=== PATIENT | male | born 1970 | race African-American/Black ===

== ENCOUNTER 2019-07-01 21:34 | Inpatient (IN) | payer MEDICAID, OTHER ==
[2019-07-01 23:31] LABS: CKMB 6.3 ng/mL (0-6.6)
[2019-07-02] MEDS ORDERED: hydrALAZINE 20 MG/ML VIAL SLOW IVP PRN (00:59)
[2019-07-02] MEDS ORDERED: Atorvastatin Calcium 40 MG TAB PO SCH ×2 (01:00→21:00)
[2019-07-02 02:44] LABS: Troponin I 0.059 ng/mL (< 0.028)
[2019-07-02 06:16] LABS: Troponin I 0.053 ng/mL (< 0.028)
[2019-07-02 06:45] VITALS: BMI 36.5
--- NOTE | 2019-07-02 07:36 | HP ---
PRIMARY CARE PHYSICIAN: Unknown. CHIEF COMPLAINT: Chest pain, headache, transfer from [facility] for further evaluation. HISTORY OF PRESENT ILLNESS: This is a 49-year-old male with past medical history of CVA with residual right-sided neurological deficits, hypertension, type 2 insulin-dependent diabetes mellitus, chronic kidney disease stage 3, and depression with bipolar disorder on Seroquel, who went to [facility] for routine evaluation and was noted to have elevated blood pressures of over 210 systolic over 110 diastolic prompting ED evaluation to [facility] and subsequently to [facility] for further evaluation. The patient reports for the past several weeks, he has been having intermittent headaches despite medication compliance. This morning, he noted left-sided chest discomfort described as pressure-like discomfort rated 8/10 in severity without radiation and without any associated nausea, vomiting, back or shoulder pain or arm pain, numbness, or tingling. He notes associated complaints of blurred vision in the past several weeks and mild shortness of breath. He is compliant with amlodipine and lisinopril and possibly other blood pressure medication, the name of which he cannot remember and states he has p.r.n. clonidine tablets available at home which he is not using. He states he checks his blood pressure at home. The highest readings are 185 systolic. Apparently, he was administered clonidine, hydralazine, and nitroglycerin paste at outside ER prior to evaluation. Initial troponin at outside facility was mildly elevated approximately at 0.09. Repeat troponin here is 0.115. 12-lead EKG revealed normal sinus rhythm without ischemic changes and changes of LVH. At bedside, the patient denies any other acute complaints. He notes maybe some mild left-sided chest discomfort, which is minimal. He denies any current headaches or blurred vision. He denies any prior history of coronary artery disease or [place] or stenting or any prior cardiac risk stratification. He is accompanied by his spouse. He denies illicit drug use. PAST MEDICAL HISTORY: CVA with residual right-sided neurological deficits, hypertension, type 2 insulin-dependent diabetes, CKD 3, bipolar disorder, and depression. Right hallux infection, completing antibiotics. PAST SURGICAL HISTORY: Appendectomy, herniorrhaphy, left arm fracture, right ankle fracture, currently in a boot with [employer] device. SOCIAL HISTORY: The patient is , lives at home with his spouse. He denies tobacco or alcohol use. Uses an assistive device to ambulate using cane. His last fall was on June 18. ALLERGIES: NONE REPORTED. REVIEW OF SYSTEMS: Pertinent positives as per HPI. Remainder of review of systems negative. MEDICATIONS: Reviewed as per admission medication reconciliation. FAMILY HISTORY: Notable for hypertension and diabetes mellitus in family members. The patient's mother had breast cancer. PHYSICAL EXAMINATION: VITAL SIGNS: At outside facility, reportedly blood pressures of over 220/120. Current blood pressure 137/85 with pulse 93, respirations 18, temperature 98.0, oxygen saturation 98% on room air. GENERAL APPEARANCE: Middle-aged male, who is awake, alert, oriented, coherent, lucid, not in any obvious distress, nontoxic in appearance. HEENT: Normocephalic, atraumatic. No facial asymmetry. Mucous membranes moist. Pupils equally round. NECK: Supple. CARDIOVASCULAR: S1, S2. Regular rate and rhythm. No harsh murmurs. No reproducible chest wall tenderness to palpation. LUNGS: Bilateral equal air entry on posterior auscultation. Symmetrical chest expansion. No wheezing or rales. ABDOMEN: Soft, nontender, nondistended. EXTREMITIES: No edema, cyanosis or deformities of both upper and lower extremities. There is a boot in the right foot. SKIN: Warm to touch without rash or pallor or abrasions. NEUROLOGICAL EVALUATION: No facial asymmetry. There are no chronic speech difficulty deficits noted. Gait was not assessed. LABORATORY VALUES: From outside facility reportedly unremarkable. Troponin at outside facility from 0.09, with repeat troponin here at 0.115. EKG reviewed reveals normal sinus rhythm with LVH changes. ASSESSMENT: 1. Hypertensive urgency. The patient will be admitted as observation status and placed on telemetry monitoring. He is noted to have complaints of intermittent headaches for the past 4 weeks with blurred vision and elevated blood pressure readings at home despite medication compliance, as well as complaints of chest pain this morning. We will trend serial cardiac biomarkers to exclude acute coronary syndrome. Home medications will be reconciled once list is accurately obtained. We will monitor blood pressure for normotension in the interim. The patient maintains medication compliance. 2. Chest pain, rule out acute coronary syndrome. I suspect the patient's symptoms are likely secondary to chronic hypertension and perhaps strain. We will trend serial cardiac biomarkers to evaluate for acute coronary syndrome. Noted mild troponin elevation of unspecified severity. We will consult Cardiology for further cardiac risk stratification, maintain patient n.p.o., obtain transthoracic echocardiogram, continue oral aspirin and moderate intensity statin. 3. Chronic kidney disease stage 3, baseline. 4. History of cerebrovascular accident with residual neurological deficits. 5. Type 2 diabetes mellitus. Resume patient's insulin dose. 6. History of bipolar disorder and depression. The patient takes Seroquel 200 mg nightly and resume normal dosing starting tomorrow night. Deep venous thrombosis prophylaxis. Low molecular weight heparin. Code status: Full code. DISPOSITION: Telemetry observation status. Job ID: [id number] MTDD
[2019-07-02] MEDS: Amlodipine 10 MG TAB PO SCH (08:53)
[2019-07-02] MEDS: Aspirin 325 mg Enteric Coated Tablet PO SCH (08:53)
[2019-07-02] MEDS ORDERED: Enoxaparin Sodium 40 MG/0.4 ML SYRINGE SC SCH (09:00)
[2019-07-02] MEDS ORDERED: Lisinopril 20 MG TAB PO SCH (09:00)
[2019-07-02] MEDS ORDERED: predniSONE 20 MG TAB PO SCH (13:15)
[2019-07-02] MEDS ORDERED: diphenhydrAMINE 50 MG CAP PO SCH (13:15)
[2019-07-02] MEDS ORDERED: Communication Order-Pharmacy FS SCH (13:15)
[2019-07-02] MEDS ORDERED: Famotidine 20 MG TAB PO SCH (13:15)
[2019-07-02] MEDS: Sodium Chloride 0.9% 1,000 ML IV SCH (14:18)
--- NOTE | 2019-07-02 15:07 | PDOC.HOSPP ---
- Subjective Encounter Date: 07/02/19 Encounter Time: 15:00 Subjective: The patient continues to have chest pain, states it is 6/10 on left side of chest. Started at home, but doesn't know what brought it on. No shortness of breath, dizziness or lightheadedness. He states aspirin and nitro patch did not provide much relief. He has never had this chest pain before. - Objective Vital Signs & Weight: Vital Signs (12 hours) Temp Pulse Resp BP BP Pulse Ox 07/02/19 11:29 97.8 F 91 17 157/79 H 99 07/02/19 10:06 151/72 H 07/02/19 08:53 56 L 07/02/19 07:45 97.6 F 56 L 15 194/96 H 99 07/02/19 06:34 98.2 F 89 17 153/85 H 100 Weight Weight 269 lb 8 oz Hospitalist ROS - Review of Systems Constitutional: denies: fever, chills ENT: denies: ear pain, ear discharge Cardiovascular: denies: light headedness, other Gastrointestinal: denies: vomiting - Medication Medications: Active Medications Generic Name Dose Route Start Last Admin Trade Name Freq PRN Reason Stop Dose Admin Amlodipine Besylate 10 mg 07/02/19 09:00 07/02/19 08:53 Norvasc PO 10 mg DAILY CHELSIE Administration Aspirin 325 mg 07/02/19 09:00 07/02/19 08:53 Ecotrin PO 325 mg DAILY CHELSIE Administration Diphenhydramine HCl 50 mg 07/02/19 13:15 07/02/19 14:18 Benadryl PO 07/02/19 15:15 50 mg NOW CHELSIE Administration Enoxaparin Sodium 40 mg 07/02/19 09:00 07/02/19 08:53 Lovenox SC 07/02/19 20:00 Not Given 0900 CHELSIE Famotidine 20 mg 07/02/19 13:15 07/02/19 14:18 Pepcid PO 07/02/19 15:15 20 mg NOW CHELSIE Administration Sodium Chloride 1,000 mls @ 75 mls/hr 07/02/19 13:00 07/02/19 14:18 Normal Saline 0.9% IV 1,000 mls .[id number] CHELSIE Administration Prednisone 20 mg 07/02/19 13:15 07/02/19 14:18 Prednisone PO 07/02/19 15:15 20 mg NOW CHELSIE Administration - Exam General Appearance: NAD, awake alert Eye: PERRL, anicteric sclera ENT: normocephalic atraumatic, no oropharyngeal lesions Neck: supple, symmetric, no JVD, no thyromegaly Heart: RRR, no murmur, no gallops, no rubs Respiratory: CTAB, no wheezes, no rales, no ronchi Gastrointestinal: soft, non-tender, non-distended, normal bowel sounds Extremities: no cyanosis, no clubbing, no edema Skin: normal turgor, no lesions, no rashes Hosp A/P - Plan THis is a 49 year old male with past medical history of hypertension, CVA, type II diabetes presenting withc hest pain, admitted for NSTEMI NSTEMI - troponin peaked at 0.059. Continue aspirin, statin, beta karri, lisinopril - cardiology consult, plan for cath tomorrow - EF 55-60% with diastolic dysfunction - resume nitro patch for now CKD - check BMp Type II diabetes - fingersticks achs, insulin sliding scale Hypertensive urgency- improved - continue amlodpine 10, coreg and lisinopril Code status: full code Disposition: cath tomorrow
[2019-07-02] MEDS ORDERED: Dextrose 5% in Water 1,000 ML IV PRN (15:11)
[2019-07-02] MEDS ORDERED: Dextrose 50% Abboject 50 ML SYRINGE SLOW IVP PRN (15:11)
[2019-07-02 15:32] LABS: Hemoglobin 12.6 g/dL (14.0-18.0); Mean Corpuscular HGB CONC 32.8 g/dL (32.0-36.0); Mean Corpuscular Volume 82.4 fL (78.0-98.0); Mean Platelet Volume 9.9 fL (7.4-10.4); Platelet Count 179 thou/uL (130-400); RBC Distribution Width 13.7 % (11.5-14.5); Red Blood Cell (RBC) Count 4.67 mill/uL (4.70-6.10); White Blood Cell (WBC) Count 6.5 thou/uL (4.8-10.8)
[2019-07-02 15:49] LABS: Anion Gap 14 mmol/L (10-20); BUN (Urea Nitrogen) 12 mg/dL (8.9-20.6); Calc. Creatinine Clearance 106 mL/min (70-130); Calcium 8.7 mg/dL (7.8-10.44); Carbon Dioxide 22 mmol/L (22-29); Chloride 106 mmol/L (98-107); Estimated GFR-MDRD 63; Glucose 238 mg/dL (70-105); Potassium 4.1 mmol/L (3.5-5.1); Sodium 138 mmol/L (136-145)
[2019-07-02] MEDS ORDERED: Nitroglycerin 0.2mg/Hour PATCH TD SCH (16:00)
[2019-07-02] MEDS ORDERED: Morphine 2 MG/ML SYRINGE SLOW IVP PRN (16:53)
--- NOTE | 2019-07-02 17:04 | CON ---
DATE OF CONSULTATION: HISTORY OF PRESENT ILLNESS: Colin Marin is a 49-year-old black male from [place], who is transferred here for evaluation of headache and chest discomfort. He was found to have a blood pressure of 210/110 when he was seen for routine evaluation. He was sent to [facility] in [place]. Also, for the last several weeks, he has been having intermittent headaches and blurred vision. Also, yesterday, he noted left-sided chest discomfort, which he described as a pressure, which lasted most of the day. He did not have any pleuritic component to the discomfort. He has not had this type chest discomfort in the past. His initial troponin was 0.09, and this increased to 0.115. EKG revealed normal sinus rhythm with possible left atrial enlargement. He denies any shortness of breath. He denies any nausea, vomiting, or diaphoresis. PAST MEDICAL HISTORY: Hypertension, hypercholesterolemia, and diabetes. Also, in November 2016, he had a stroke, which affected his speech and right side. His speech returned, and he still has mild weakness on his right side. He was evaluated at [facility] in [place] when he had the stroke. He was not told that he had any bleeding into his brain. He was told that he should take an aspirin every day thereafter and was not taking any aspirin prior to the stroke. He also has bipolar disorder and depression. PAST SURGICAL HISTORY: Operations: Appendectomy, herniorrhaphy, drainage of scrotal abscess, right ankle fracture, and left arm fracture. SOCIAL HISTORY: He smoked until 20 years ago, less than a pack a day. The patient does dip snuff. He does not drink. MEDICATIONS: (He states he has been taking these medications): 1. Albuterol 2 puffs q.6 hours p.r.n. 2. Amlodipine 10 mg daily. 3. Aspirin 81 daily. 4. Atorvastatin 40 q.p.m. 5. Carvedilol 25 b.i.d. 6. Chlorthalidone 25 daily. 7. Clonidine 0.2 mg b.i.d. p.r.n. 8. Gabapentin 600 t.i.d. 9. [place] p.r.n. 10. Lantus insulin. 11. Keppra 1000 mg b.i.d. 12. Lisinopril 40 daily. 13. Reglan 10 mg q.i.d. p.r.n. 14. Remeron 15 mg at bedtime p.r.n. 15. Seroquel 100 mg q.p.m. ALLERGIES: IODINE. HE STATES THAT WHEN RECEIVING INTRAVENOUS CONTRAST FOR AN X -RAY PROCEDURE THAT HE DEVELOPED FACIAL SWELLING. FAMILY HISTORY: Negative for myocardial infarction, CABG, or stent placement. REVIEW OF SYSTEMS: A 10-point review of systems is otherwise unremarkable. PHYSICAL EXAMINATION: GENERAL: Blood pressure 157/79, pulse of 91. HEENT: PERRL. NECK: Supple. CHEST: Clear. CARDIAC: S1 and S2 are normal without any S3, S4, or murmurs. Carotid upstrokes are normal without bruits. ABDOMEN: Normal bowel sounds without tenderness or organomegaly. EXTREMITIES: Revealed no clubbing, cyanosis, or edema. NEUROLOGIC: Grossly intact except for mild right-sided weakness. SKIN: Warm and dry. LABORATORY DATA: EKG reveals normal sinus rhythm with left atrial enlargement. Echocardiogram revealed moderate concentric left ventricular hypertrophy, ejection fraction of 55% to 60%, evidence for diastolic dysfunction, mild left atrial enlargement, mild mitral regurgitation, and mild tricuspid regurgitation. Blood work from [place] revealed sodium of 139, potassium 4.2, chloride 108, carbon dioxide 22, BUN 18, creatinine 1.63 (it is of note that creatinine here in January 2017, was also 1.63). Hemoglobin 11.9, hematocrit 37.6, white count 6300, platelets 191,000. Troponin I here has been 0.115. IMPRESSION: 1. Possible acute coronary syndrome. It is somewhat unusual though that his pain lasted all day, and he has not had significant elevation of his cardiac enzymes. 2. Hypertension, poorly controlled at this time. 3. Hypercholesterolemia. 4. Diabetes. 5. Snuff user. 6. Former smoker. 7. History of bipolar disorder. 8. History of depression. 9. Chronic kidney disease. 10. Dye allergy. PLAN: The situation was discussed with the patient and his . He will be restarted on carvedilol, which has not been restarted on admission. Also, lisinopril will be discontinued with his renal insufficiency. Chlorthalidone has already been stopped. He will be hydrated overnight. He also will be started on prednisone q 6 hours, Benadryl q.6 hours, and Pepcid b.i.d. It is recommended he undergo cardiac catheterization, and risks of this were discussed with the patient and his - , myocardial infarction, dye reaction, vascular injury, CVA, transfusion, limb loss, renal loss, allergic reaction, etc. Risks of stent placement were discussed including , myocardial infarction, emergent CABG, restenosis, stent thrombosis, vessel perforation, etc. He has never had any gastrointestinal bleeding. His stroke apparently was not hemorrhagic in nature, and he does not have any upcoming surgeries, and so, a drug-eluting stent will be placed if needed. Also, consideration will be given to renal arteriogram with his severe hypertension despite maximum doses of multiple medications. Job ID: [id number] [facility]PITALJayesh
[2019-07-02] MEDS: predniSONE 20 MG TAB PO SCH (17:24)
[2019-07-02] MEDS: HumaLOG 300 UNITS/3 ML VIAL SC PRN (17:24)
[2019-07-02] MEDS: diphenhydrAMINE 50 MG CAP PO SCH (17:24)
[2019-07-02] MEDS: Carvedilol 25 MG TAB PO SCH (17:24)
[2019-07-02] MEDS: Famotidine 20 MG TAB PO SCH (22:04)
[2019-07-03] MEDS: diphenhydrAMINE 50 MG CAP PO SCH ×3 (00:02→12:04)
[2019-07-03] MEDS: predniSONE 20 MG TAB PO SCH ×3 (00:02→12:04)
[2019-07-03] MEDS: Sodium Chloride 0.9% 1,000 ML IV SCH (04:05)
[2019-07-03 05:23] LABS: Prothrombin Time 12.8 SEC (12.0-14.7)
[2019-07-03 05:41] LABS: Anion Gap 13 mmol/L (10-20); BUN (Urea Nitrogen) 17 mg/dL (8.9-20.6); Calc. Creatinine Clearance 92 mL/min (70-130); Calcium 8.8 mg/dL (7.8-10.44); Carbon Dioxide 21 mmol/L (22-29); Cardiac Risk 4.3 (Less than 4.5); Chloride 107 mmol/L (98-107); Cholesterol 222 mg/dl (< 200 Desired); Estimated GFR-MDRD 53; Glucose 301 mg/dL (70-105); HDL Cholesterol 52 mg/dL (>60 Neg Risk); LDL Cholesterol, Calculated 150 mg/dL; Potassium 4.7 mmol/L (3.5-5.1); Sodium 136 mmol/L (136-145); Triglycerides 99 mg/dL (Less than 150)
[2019-07-03] MEDS: Famotidine 20 MG TAB PO SCH (05:57)
[2019-07-03] MEDS: Carvedilol 25 MG TAB PO SCH ×3 (05:57→21:14)
[2019-07-03] MEDS: Amlodipine 10 MG TAB PO SCH (05:57)
[2019-07-03] MEDS: Aspirin 325 mg Enteric Coated Tablet PO SCH (05:57)
[2019-07-03] MEDS ORDERED: Heparin 10,000 UNITS/1 ML VIAL ONE (06:59)
[2019-07-03] MEDS ORDERED: Heparin (Artline) 1,000 ML ONE (06:59)
[2019-07-03] MEDS ORDERED: Midazolam HCl 2 mg/2 ml Vial ONE (08:40)
[2019-07-03] MEDS ORDERED: Fentanyl 100 MCG/2 ML VIAL ONE (08:40)
[2019-07-03] MEDS ORDERED: Protamine Sulfate 50 MG/5 ML VIAL ONE (09:01)
[2019-07-03] MEDS ORDERED: Sodium Chloride 0.9% 200 ML IV PRN (09:14)
[2019-07-03] MEDS ORDERED: Acetaminophen/Codeine 30-300mg Tablet PO PRN (09:14)
[2019-07-03] MEDS ORDERED: Nitroglycerin 0.4 MG TAB (25 Tab Bottle) SL PRN (09:14)
[2019-07-03] MEDS ORDERED: Sodium Chloride 0.9% 1,000 ML IV SCH ×2 (09:15→09:30)
[2019-07-03] MEDS: HumaLOG 300 UNITS/3 ML VIAL SC PRN ×3 (12:04→21:35)
[2019-07-03] MEDS: Acetaminophen/Codeine 30-300mg Tablet PO PRN ×2 (12:05→17:11)
[2019-07-03] MEDS ORDERED: Iopamidol 370 76% 100 ML VIAL ONE (12:40)
--- NOTE | 2019-07-03 13:20 | PDOC.HOSPP ---
- Subjective Encounter Date: 07/03/19 - Objective Vital Signs & Weight: Vital Signs (12 hours) Temp Pulse Resp BP BP Pulse Ox 07/03/19 11:14 97.7 F 89 22 H 117/54 L 98 07/03/19 09:34 97.6 F 88 20 138/76 100 07/03/19 09:14 100 07/03/19 05:57 94 144/67 H 07/03/19 03:24 94 18 144/67 H 99 Weight Weight 269 lb 8 oz I&O: 07/02/19 07/03/19 07/04/19 06:59 06:59 06:59 Intake Total 2100 Output Total 900 Balance 1200 Result Diagrams: 07/02/19 15:24 07/03/19 04:47 Additional Labs: Accuchecks 07/03/19 07/02/19 07/02/19 11:19 20:44 16:58 POC Glucose 362 H 258 H 222 H 07/02/19 11:37 POC Glucose 152 H Hospitalist ROS - Medication Medications: Active Medications Generic Name Dose Route Start Last Admin Trade Name Freq PRN Reason Stop Dose Admin Acetaminophen/Codeine Phosphate 2 tab 07/03/19 09:14 07/03/19 12:05 Tylenol #3 PO 2 tab Q4H PRN Administration Moderate Pain (4-6) Amlodipine Besylate 10 mg 07/02/19 09:00 07/03/19 05:57 Norvasc PO 10 mg DAILY CHELSIE Administration Diphenhydramine HCl 50 mg 07/02/19 18:00 07/03/19 12:04 Benadryl PO 07/03/19 15:00 50 mg Q6HR CHELSIE Administration Sodium Chloride 1,000 mls @ 125 mls/hr 07/03/19 09:15 07/03/19 11:06 Normal Saline 0.9% IV 07/03/19 15:00 Not Given .Q8H CHELSIE Sodium Chloride 1,000 mls @ 75 mls/hr 07/03/19 09:30 07/03/19 12:06 Normal Saline 0.9% IV 07/03/19 15:00 1,000 mls .[id number] CHELSIE Administration Insulin Human Lispro 0 units 07/02/19 15:11 07/03/19 12:04 Humalog SC 6 unit .MILD SLIDING SCALE PRN Administration Mild Correctional Scale Morphine Sulfate 2 mg 07/02/19 16:53 07/02/19 17:24 Morphine SLOW IVP 2 mg Q4H PRN Administration Moderate Pain (4-6) Prednisone 20 mg 07/02/19 18:00 07/03/19 12:04 Prednisone PO 07/03/19 15:00 20 mg Q6HR CHELSIE Administration Hosp A/P - Plan THis is a 49 year old male with past medical history of hypertension, CVA, type II diabetes presenting withc hest pain, admitted for NSTEMI NSTEMI - troponin peaked at 0.059. Continue aspirin, statin, beta karri, lisinopril - cardiology consult, plan for cath tomorrow - EF 55-60% with diastolic dysfunction - resume nitro patch for now CKD - check BMp Type II diabetes - fingersticks achs, insulin sliding scale Hypertensive urgency- improved - continue amlodpine 10, coreg and lisinopril Code status: full code Disposition: cath tomorrow
[2019-07-03] MEDS ORDERED: Pantoprazole 40 MG GRANULES PACKET PO SCH (13:30)
--- NOTE | 2019-07-03 14:47 | PDOC.HOSPP ---
- Subjective Encounter Date: 07/03/19 Encounter Time: 10:30 Subjective: The patient continues to have chest pain. He had a cath this morning which showed no significant CAD. Chest pain is burning. No dysphagia or odynophagia. He also reports some pain in his RLQ. Wants to use the urinal and have a bowel movement, but is having difficulty since he has to lay flat. - Objective Vital Signs & Weight: Vital Signs (12 hours) Temp Pulse Resp BP BP Pulse Ox 07/03/19 11:14 97.7 F 89 22 H 117/54 L 98 07/03/19 09:34 97.6 F 88 20 138/76 100 07/03/19 09:14 100 07/03/19 05:57 94 144/67 H 07/03/19 03:24 94 18 144/67 H 99 Weight Weight 269 lb 8 oz I&O: 07/02/19 07/03/19 07/04/19 06:59 06:59 06:59 Intake Total 2100 Output Total 900 Balance 1200 Result Diagrams: 07/02/19 15:24 07/03/19 04:47 Additional Labs: Accuchecks 07/03/19 07/02/19 07/02/19 11:19 20:44 16:58 POC Glucose 362 H 258 H 222 H 07/02/19 11:37 POC Glucose 152 H Hospitalist ROS - Review of Systems Constitutional: denies: fever, chills ENT: denies: mouth pain Respiratory: denies: cough - Medication Medications: Active Medications Generic Name Dose Route Start Last Admin Trade Name Freq PRN Reason Stop Dose Admin Acetaminophen/Codeine Phosphate 2 tab 07/03/19 09:14 07/03/19 12:05 Tylenol #3 PO 2 tab Q4H PRN Administration Moderate Pain (4-6) Amlodipine Besylate 10 mg 07/02/19 09:00 07/03/19 05:57 Norvasc PO 10 mg DAILY CHELSIE Administration Carvedilol 25 mg 07/03/19 15:00 07/03/19 14:19 Coreg PO 25 mg TID CHELSIE Administration Diphenhydramine HCl 50 mg 07/02/19 18:00 07/03/19 12:04 Benadryl PO 07/03/19 15:00 50 mg Q6HR CHELSIE Administration Sodium Chloride 1,000 mls @ 125 mls/hr 07/03/19 09:15 07/03/19 11:06 Normal Saline 0.9% IV 07/03/19 15:00 Not Given .Q8H CHELSIE Sodium Chloride 1,000 mls @ 75 mls/hr 07/03/19 09:30 07/03/19 12:06 Normal Saline 0.9% IV 07/03/19 15:00 1,000 mls .[id number] CHELSIE Administration Insulin Human Lispro 0 units 07/02/19 15:11 07/03/19 12:04 Humalog SC 6 unit .MILD SLIDING SCALE PRN Administration Mild Correctional Scale Morphine Sulfate 2 mg 07/02/19 16:53 07/02/19 17:24 Morphine SLOW IVP 2 mg Q4H PRN Administration Moderate Pain (4-6) Pantoprazole Sodium 40 mg 07/03/19 13:30 07/03/19 14:19 Protonix PO 07/03/19 15:30 40 mg NOW CHELSIE Administration Prednisone 20 mg 07/02/19 18:00 07/03/19 12:04 Prednisone PO 07/03/19 15:00 20 mg Q6HR CHELSIE Administration - Exam General Appearance: NAD, awake alert Eye: PERRL, anicteric sclera ENT: normocephalic atraumatic, no oropharyngeal lesions Neck: supple, symmetric, no JVD, no thyromegaly Heart: RRR, no murmur, no gallops, no rubs Respiratory: CTAB, no wheezes, no rales, no ronchi Gastrointestinal: soft, non-distended, normal bowel sounds Gastrointestinal - other findings: RLQ tenderness. NO groin tenderness. Cath site no hematoma Extremities: no cyanosis, no clubbing, no edema Skin: normal turgor, no lesions, no rashes Hosp A/P - Plan Cath: showed 20% stenosis ECHO: EF 55-60%, mild MR, mild TR THis is a 49 year old male with past medical history of hypertension, CVA, type II diabetes presenting with chest pain, workup negative so far. Still here for LUCI and abdominal pain Chest pain - possibly GERD? - troponin peaked at 0.059. ECHO showed no wall motion abnormalities. Cardiac cath insignificant - Continue aspirin, statin, beta karri, lisinopril -start protonix 40 mg daily #RLQ abdominal pain - will check CT abdomen to evaluate hematoma or other pathology - bowel meds prn #Hypertension #Elevated troponin - possibly from hypertension - ECHO showed no wall motion abnormalities, cath negative - coreg increased to 25 mg tid by cardiology LUCI on CKD - creatinine up to 1.66. Hydrate with IV fluids - check UA - CT abdomen - discontinue lisinopril Type II diabetes - fingersticks achs, insulin sliding scale Hypertensive urgency- improved - continue amlodpine 10, coreg - d/c lisinopril Code status: full code Disposition: CT abdomen, pending improvement of LUCI, abd pain, chest pain
[2019-07-03 15:47] LABS: Bacteria/HPF None Seen HPF (None Seen); Bilirubin Negative (Negative); Blood, Urine Trace (Negative); Clarity Clear (Clear); Glucose, Urine (Dipstick) Greater than 1000 mg/dL (Negative); Leukocyte Negative Leu/uL (Negative); Nitrite Negative (Negative); Protein, Urine (Dipstick) 200 mg/dL (Neg-Trace); RBC/HPF 0-3 HPF (0-3); Squamous Epithelial None Seen HPF (0-3); Urobilinogen Normal mg/dL (Less than 2); WBC/HPF 0-3 HPF (0-3)
--- NOTE | 2019-07-03 17:14 | CT ---
CT ABDOMEN AND PELVIS WITHOUT CONTRAST: 07/03/19 HISTORY: Right lower quadrant pain. COMPARISON: CT stone protocol 05/14/13. FINDINGS: The lung bases are clear. No pericardial effusion. There is contrast within the ureters and urinary bladder. No hydronephrosis. Noncontrast evaluation of the liver, gallbladder, spleen, and pancreas are unremarkable. There is small volume hemorrhage along the right pericolic gutter extending into the groin on the rig ht. This causes mild thickening of the right pericolic gutter fascia. There is some retroperitoneal extension of hemorrhage. This is relatively small. Evidence of a recent right groin instrumentation. Appendix is not well visualized. IMPRESSION: Findings of a small right groin hematoma extending along the right pericolic space with evidence of r ecent right groin instrumentation. POS: CET
[2019-07-03 18:32] LABS: Hemoglobin 11.9 g/dL (14.0-18.0); Mean Corpuscular Hemoglobin 27.1 pg (27.0-31.0); Mean Corpuscular Volume 82.1 fL (78.0-98.0); Platelet Count 187 thou/uL (130-400); RBC Distribution Width 13.8 % (11.5-14.5); Red Blood Cell (RBC) Count 4.41 mill/uL (4.70-6.10); White Blood Cell (WBC) Count 14.9 thou/uL (4.8-10.8)
[2019-07-03] MEDS ORDERED: Insulin Glargine 10 UNITS in Pre-Filled Syringe 1 EACH SC SCH (21:00)
[2019-07-03] MEDS: Atorvastatin Calcium 40 MG TAB PO SCH (21:14)
[2019-07-04 04:34] LABS: Hemoglobin 10.7 g/dL (14.0-18.0); Mean Corpuscular Hemoglobin 26.4 pg (27.0-31.0); Mean Corpuscular Volume 82.7 fL (78.0-98.0); Mean Platelet Volume 10.7 fL (7.4-10.4); Platelet Count 177 thou/uL (130-400); RBC Distribution Width 13.8 % (11.5-14.5); Red Blood Cell (RBC) Count 4.04 mill/uL (4.70-6.10); White Blood Cell (WBC) Count 14.8 thou/uL (4.8-10.8)
[2019-07-04 04:50] LABS: ALT (SGPT) 16 U/L (8-55); AST (SGOT) 9 U/L (5-34); Albumin 3.1 g/dL (3.5-5.0); Alkaline Phosphatase 76 U/L (40-110); Anion Gap 11 mmol/L (10-20); BUN (Urea Nitrogen) 28 mg/dL (8.9-20.6); Bilirubin, Total 0.3 mg/dL (0.2-1.2); Calc. Creatinine Clearance 76 mL/min (70-130); Calcium 8.3 mg/dL (7.8-10.44); Carbon Dioxide 20 mmol/L (22-29); Chloride 106 mmol/L (98-107); Estimated GFR-MDRD 43; Globulin 3.2 g/dL (2.4-3.5); Glucose 454 mg/dL (70-105); Potassium 4.3 mmol/L (3.5-5.1); Protein, Total 6.3 g/dL (6.0-8.3); Sodium 133 mmol/L (136-145)
[2019-07-04] MEDS: HumaLOG 300 UNITS/3 ML VIAL SC PRN ×3 (05:21→21:21)
[2019-07-04] MEDS: Acetaminophen/Codeine 30-300mg Tablet PO PRN ×2 (08:11→21:25)
[2019-07-04] MEDS: Amlodipine 10 MG TAB PO SCH (08:11)
[2019-07-04] MEDS: Aspirin 81 mg Enteric Coated Tablet PO SCH (08:11)
[2019-07-04] MEDS: Carvedilol 25 MG TAB PO SCH ×3 (08:12→21:19)
--- NOTE | 2019-07-04 10:08 | ULT ---
US Renal Bilateral STANDARD History: Elevated creatinine Comparison: CT abdomen and pelvis prior day Findings: Real-time grayscale and color evaluation of the kidneys and urinary bladder was performed. Right kidney measures 13.4 x 5.9 x 6.4 cm and the left kidney measures 13.4 x 6.2 x 4.7 cm. Prevoid u rinary bladder volume is 195 mL. No hydronephrosis or abnormal calcifications. Hypoechoic focus interpolar right kidney measuring up to 1.3 cm in size. Impression: Small 1.3 cm hypoechoic focus interpolar right kidney. A follow-up renal protocol CT or M [facility] in 6 months recommended.
--- NOTE | 2019-07-04 10:49 | PDOC.HOSPP ---
- Subjective Encounter Date: 07/04/19 Encounter Time: 10:48 Subjective: The patient still has some RLQ pain. He states that he hasn't had a bowel movement in six days. He also ambulated around the hallway and when he came back he told his he was dizzy. He has been urinating okay. Creatinine continues to go up. He still has some chest pain, but states it has improved - Objective Vital Signs & Weight: Vital Signs (12 hours) Temp Pulse Resp BP Pulse Ox 07/04/19 07:05 97.6 F 84 18 132/62 99 07/04/19 03:24 97.9 F 86 18 138/70 98 Weight Weight 271 lb 14.4 oz I&O: 07/03/19 07/04/19 07/05/19 06:59 06:59 06:59 Intake Total 2100 2150 Output Total 900 1500 Balance 1200 650 Result Diagrams: 07/04/19 04:11 07/04/19 04:11 Additional Labs: Accuchecks 07/04/19 07/03/19 07/03/19 05:10 20:27 16:26 POC Glucose 396 H 424 H 390 H 07/03/19 11:19 POC Glucose 362 H Hospitalist ROS - Review of Systems Constitutional: denies: fever, chills Respiratory: denies: cough, dry, pleuritic pain - Medication Medications: Active Medications Generic Name Dose Route Start Last Admin Trade Name Freq PRN Reason Stop Dose Admin Acetaminophen/Codeine Phosphate 2 tab 07/03/19 09:14 07/04/19 08:11 Tylenol #3 PO 2 tab Q4H PRN Administration Moderate Pain (4-6) Aspirin 81 mg 07/04/19 09:00 07/04/19 08:11 Ecotrin PO 81 mg DAILY CHELSIE Administration Atorvastatin Calcium 80 mg 07/03/19 21:00 07/03/19 21:14 Lipitor PO 80 mg HS CHELSIE Administration Carvedilol 25 mg 07/03/19 15:00 07/04/19 08:12 Coreg PO 25 mg TID CHELSIE Administration Insulin Glargine 10 units/ 0.1 mls @ 0 mls/hr 07/03/19 21:00 07/03/19 21:14 Miscellaneous Medication SC 0.1 mls HS CHELSIE Administration Insulin Human Lispro 0 units 07/02/19 15:11 07/04/19 05:21 Humalog SC 6 unit .MILD SLIDING SCALE PRN Administration Mild Correctional Scale Insulin Human Lispro 0 units 07/03/19 21:32 07/03/19 21:35 Humalog SC 5 unit .BEDTIME SLIDING SC PRN Administration BEDTIME SLIDING SCALE Protocol Morphine Sulfate 2 mg 07/02/19 16:53 07/02/19 17:24 Morphine SLOW IVP 2 mg Q4H PRN Administration Moderate Pain (4-6) Pantoprazole Sodium 40 mg 07/04/19 09:00 07/04/19 08:12 Protonix PO 40 mg DAILY CHELSIE Administration Quetiapine Fumarate 150 mg 07/03/19 21:00 07/03/19 21:14 Seroquel PO 150 mg HS CHELSIE Administration - Exam General Appearance: NAD, awake alert Eye: PERRL, anicteric sclera ENT: normocephalic atraumatic, no oropharyngeal lesions Neck: supple, symmetric, no JVD, no thyromegaly Heart: RRR, no murmur, no gallops, no rubs Respiratory: CTAB, no wheezes, no rales, no ronchi Gastrointestinal: soft, no guarding, no rigidity Gastrointestinal - other findings: RLQ tenderness to mild palpation Extremities: no cyanosis, no clubbing, no edema Skin: normal turgor, no lesions, no rashes Hosp A/P - Plan CT abdomen: small right groin hematoma This is a 49 year old male who presented with chest pain and elevated troponin , found to have negative cath Chest pain - possibly GERD - continue protonix 40 mg daily - cath showed only 20% stenosis Acute Kidney Injury - possibly contrast nephropathy - creatinine is up to 2.02 - renal ultrasound negative for hydronephrosis - UA shows some proteinuria - will re-hydrate with IV fluids 75 ml/hour - nephrology consult Right groin hematoma - noted on CT abdomen. CBC currently stable - continue to monitor Dizziness - will d/c amlodipine - lisinopril on hold - check orthostatics - hydrate with IV fluids Hyponatremia - sodium down to 133 - given dizziness will hydrate with IV fluids Constipation - will order miralax, senna/colace Type II diabetes - started on lantus 10 units at night - blood sugars 390's. Will re-adjust lantus according to blood sugars Leukocytosis - WBC up to 14.8, no fevers - possibly reactive. Patient denies cough, dysuria, will monitor Code status: full code
[2019-07-04] MEDS ORDERED: Sodium Chloride 0.9% 1,000 ML IV SCH (11:00)
[2019-07-04] MEDS ORDERED: Senokot S 8.6-50 MG TAB PO SCH ×2 (11:00→21:00)
[2019-07-04] MEDS ORDERED: HumaLOG 300 UNITS/3 ML VIAL SC SCH (11:15)
[2019-07-04] MEDS ORDERED: Polyethylene Glycol 3350 17 GM Packet PO SCH (11:30)
--- NOTE | 2019-07-04 12:54 | PQF ---
DATE: 07-04-19 ATTN: DR. EDENILSON HILL Please exercise your independent, professional judgment in responding to the clarification form. Clinical indicators are provided on the bottom of this form for your review Please check appropriate box(s) to clarify if the following diagnosis has been ruled in or ruled out: NSTEMI [ ] Ruled in diagnosis [ ] Continue to treat [ ] Resolved [ X ] Ruled out diagnosis [ ] Other diagnosis [ ] Unable to determine In addition, please specify: Present on Admission (POA): [ ] Yes [ ] No [ ] Unable to determine For continuity of documentation, please document condition throughout progress notes and discharge summary. Thank You. CLINICAL INDICATORS - SIGNS / SYMPTOMS / LABS / RESULTS AND LOCATION IN MR: PN DR. EDENILSON HILL 07-02-19: MEDICAL HISTORY OF HTN, CVA, TYPE 2 DM PRESENTING WITH CP, ADMITTED FOR NSTEMI PN DR. EDENILSON HILL 07-02-18: NSTEMI: TROPONIN PEAKED AT 0.059, CONTINUE ASPIRIN, STATIN, BETA MU, LISINOPRIL, CARDIOLOGY CONSULT, PLAN FOR CATH, EF 55-60% WITH DIASTOLIC DYSFUNCTION, RESUME NITRO PATCH FOR NOW TROPONIN: 07-01-19: 0.115 07-02-19: 0.059 07-02-19: 0.053 RISK FACTORS / RESULTS AND LOCATION IN MR: H&P 07-01-19: HX OF CVA WITH RESIDUAL RIGHT SIDED NEUROLOGICAL DEFICITS, HTN, DM 2, CKD3, BIPOLAR, DEPRESSION TREATMENTS / RESULTS AND LOCATION IN MR: PN DR. EDENILSON HILL 07-02-18: NSTEMI: TROPONIN PEAKED AT 0.059, CONTINUE ASPIRIN, STATIN, BETA MU, LISINOPRIL, CARDIOLOGY CONSULT, PLAN FOR CATH, EF 55-60% WITH DIASTOLIC DYSFUNCTION, RESUME NITRO PATCH FOR NOW (This form is maintained as a part of the permanent medical record) 2014 [employer]. All Rights Reserved TRISTIAN [email or web address] Office: [phone] HUYEN
[2019-07-04] MEDS ORDERED: Insulin Glargine 10 UNITS in Pre-Filled Syringe 1 EACH SC SCH (16:00)
[2019-07-04] MEDS: Sodium Chloride 0.9% 1,000 ML IV SCH (16:25)
[2019-07-04 17:11] LABS: Anion Gap 11 mmol/L (10-20); BUN (Urea Nitrogen) 25 mg/dL (8.9-20.6); CK (CPK) 127 U/L (30-200); Calc. Creatinine Clearance 83 mL/min (70-130); Calcium 8.5 mg/dL (7.8-10.44); Carbon Dioxide 23 mmol/L (22-29); Chloride 106 mmol/L (98-107); Estimated GFR-MDRD 47; Glucose 292 mg/dL (70-105); Sodium 136 mmol/L (136-145)
--- NOTE | 2019-07-04 17:26 | CON ---
DATE OF CONSULTATION: 07/04/2019 SERVICE: Nephrology. REASON FOR CONSULTATION: Acute on chronic kidney disease. REQUESTING PHYSICIAN: Dr. Lizette Davila. CHIEF COMPLAINT: Chest pain and headache. HISTORY OF PRESENT ILLNESS: A 49-year-old male with known history of CVA with mild residual right-sided weakness, hypertension, type 2 diabetes, and CKD stage 3, as well as depression with bipolar disorder, who was found to have markedly elevated blood pressure with systolic above 210, as well as a complaint of chest pain and headaches, and was subsequently brought to this hospital for further evaluation. The patient subsequently was admitted and Cardiology took the patient in yesterday for cardiac catheterization. Creatinine is noted to be trending upwards, hence Nephrology consult. The patient on lisinopril, who admitted to using ibuprofen intermittently also. On presentation, he had creatinine of 1.44, however, the next day prior to cardiac catheterization, creatinine was 1.66 and earlier today it was 2.02, necessitating Nephrology consult. Of note, the patient was started on IV fluid prior to cardiac catheterization. Post cardiac cath, the patient developed abdominal pain, necessitating evaluation with CT scan of the abdomen, which showed right groin hematoma extending retroperitoneally. The patient continued to have abdominal pain, but that has improved. He also has complains of some chest pain, but denied nausea or vomiting. Headache has subsided. PAST MEDICAL HISTORY: 1. CKD stage 3. 2. CVA with right-sided weakness. 3. Hypertension. 4. Bipolar disorder. 5. Depression. 6. Type 2 diabetes mellitus. PAST SURGICAL HISTORY: 1. Appendectomy. 2. Hernia repair. 3. Left ankle fracture, status post treatment. 4. Left arm fracture. FAMILY HISTORY: Notable for hypertension and diabetes in family members. Mother also had breast cancer. SOCIAL HISTORY: The patient is and lives with spouse at home. Denied alcohol or tobacco use or recreational drug use. ALLERGIES: NONE REPORTED. MEDICATIONS: Prior to hospital medications; 1. Hydrocodone 7.5/325 one tablet q.4 p.r.n. 2. Albuterol sulfate two puffs inhalation q.6 p.r.n. for shortness of breath and wheezing. 3. Norvasc 10 mg p.o. daily. 4. Aspirin 81 mg p.o. daily. 5. Lipitor 40 mg daily at p.m. 6. Carvedilol 25 mg p.o. b.i.d. 7. Chlorthalidone 25 mg p.o. daily. 8. Clonidine 0.2 mg p.o. b.i.d. 9. Gabapentin 600 mg p.o. t.i.d. 10. Insulin 30 units subcutaneously daily. 11. Keppra 1000 mg p.o. b.i.d. 12. Lisinopril 40 mg p.o. daily. 13. Reglan 10 mg q.i.d. 14. Remeron 15 mg p.o. at bedtime p.r.n. 15. Seroquel 150 mg p.o. daily at bedtime. Current hospital medications; 1. Lantus 10 units daily. 2. Normal saline infusion at 75 mL/h. 3. Amlodipine 10 mg p.o. daily. 4. Aspirin 81 mg p.o. daily. 5. Lipitor 80 mg p.o. daily. 6. Carvedilol 25 mg p.o. t.i.d. 7. Protonix 40 mg p.o. daily. 8. MiraLAX 17 g p.o. daily. 9. Seroquel 150 mg p.o. daily at bedtime. 10. Sublingual nitroglycerin p.r.n. 11. Sliding scale insulin. 12. P.r.n. hydralazine IV pushes. 13. Morphine 2 mg IV push q.4 p.r.n. REVIEW OF SYSTEMS: 12-point review of system performed was negative other than pertinent positives and negatives included in the history of present illness. PHYSICAL EXAMINATION: VITAL SIGNS: Temperature 97.1, pulse 84, respiratory rate 22, SpO2 of 99% on room air, blood pressure is 132/81. GENERAL: Obese male, in no obvious distress. Afebrile. Anicteric. Acyanotic. HEENT: Normocephalic and atraumatic. Oral mucosa is moist. NECK: Supple with no JVD. CARDIOVASCULAR: Regular rhythm and rate with normal heart sounds 1 and 2. RESPIRATORY: Fair air entry bilaterally with some transmitted breath sounds, but no obvious crackle or rhonchi or use of accessory muscles. GI: Obese, soft, nondistended. Right lower quadrant tenderness with groin dressing and mild ecchymoses noted. EXTREMITIES: Grossly normal looking, atraumatic with no obvious edema or erythema. Distal pulses are palpable. 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 Cranial nerves 2 through 12 are grossly intact. DIAGNOSTIC DATA: CBC today showed WBC count of 14.8, hemoglobin of 10.7, MCV of 82.7, and platelet of 177. CMP today showed sodium 133, potassium 4.3, chloride 106, CO2 of 20, BUN 28, creatinine 2.02, glucose 454, calcium 8.3, total bilirubin 0.3, AST 9, ALT 16, alkaline phosphatase 76, total protein 6.3, albumin 3.1, globulin 3.2. Urinalysis performed on July 03, 2019 showed colorless clear urine with pH of 6.0, specific gravity of 1.024, urine protein of 200 mg/dL, glucose was greater than 1000 mg/dL, negative ketone, trace blood, negative nitrite, bilirubin, and leukocyte esterase. Microscopy showed 0 to 3 rbc and 0 to 3 wbc. IMAGING STUDIES: CT scan of the abdomen and pelvis performed on July 03, 2019, showed small volume hemorrhage along the right pericolic gutter extending into the groin on the right, which causes mild thickening of the right pericolic gutter fascia. There is some retroperitoneal extension of hemorrhage, which is relatively small. Renal ultrasound performed earlier today showed small 1.3 cm hypoechoic focus interpolar right kidney with a recommendation of followup renal CT or MRI in 6 months. Right kidney measures 13.4 x 5.9 x 6.4 and left kidney measures 13.4 x 6.2 x 4.7. No hydronephrosis or abnormal calcification noted. ASSESSMENT: 1. Acute kidney injury: Etiology is unclear since creatinine started trending up prior to contrast. The patient however was on lisinopril as well as chlorthalidone prior to contrast study. He also admitted to intermittent use of NSAIDs prior to admission. Differentials include volume depletion as well as contrast induced nephropathy. The patient is not overloaded despite IV fluid therapy, making a case for volume depletion prior to contrast study. This however increased risk for contrast induced nephropathy as well as use for lisinopril and NSAIDs. 2. Chronic kidney disease stage 3 due to hypertension and diabetes. 3. Poorly controlled hypertension: Control is better currently. 4. Hyponatremia: This is pseudohyponatremia as blood sugar is above 400 with corrected sodium being within normal limits. 5. Right groin bleed with extension retroperitoneally: A complication of cardiac catheterization. Progressive drop in hemoglobin points to is concerning for increased bleeding. 6. Poorly controlled diabetes mellitus with blood sugars in 300 and 400. PLAN: 1. We will get urine electrolytes as well as repeat urinalysis. We will also get C3 and C4 since artery embolic kidney disease is a concern given recent cardiac catheterization as well as renal artery catheterization. We will also increase IV fluid therapy to 125 mL/h. 2. Repeat CT scan of the abdomen and pelvis is contemplated. We will monitor renal function tomorrow. If hemoglobin dropped further, we will have to get repeat CT scan of the abdomen and pelvis to ascertain degree of bleeding and rule out Page kidney. Other treatment as per primary attending and Cardiology. We will continue to follow along with you. Many thanks for involving us in the care of this patient. Job ID: [id number]
[2019-07-04 17:46] LABS: Bacteria/HPF None Seen HPF (None Seen); Bilirubin Negative (Negative); Blood, Urine Negative (Negative); Clarity Clear (Clear); Glucose, Urine (Dipstick) Greater than 1000 mg/dL (Negative); Leukocyte Negative Leu/uL (Negative); Nitrite Negative (Negative); Protein, Urine (Dipstick) 100 mg/dL (Neg-Trace); RBC/HPF 0-3 HPF (0-3); Squamous Epithelial 0-3 HPF (0-3); Urobilinogen Normal mg/dL (Less than 2); WBC/HPF 0-3 HPF (0-3)
[2019-07-04 18:03] LABS: Creatinine, Urine 79.03 mg/dL (63-166)
[2019-07-04] MEDS: Atorvastatin Calcium 40 MG TAB PO SCH (21:19)
[2019-07-04] MEDS: Insulin Glargine 20 UNITS in Pre-Filled Syringe SC SCH (21:20)
[2019-07-05] MEDS: Sodium Chloride 0.9% 1,000 ML IV SCH ×3 (01:06→20:51)
[2019-07-05 08:15] LABS: Hemoglobin 11.7 g/dL (14.0-18.0); Mean Corpuscular HGB CONC 31.4 g/dL (32.0-36.0); Mean Corpuscular Hemoglobin 26.2 pg (27.0-31.0); Mean Corpuscular Volume 83.4 fL (78.0-98.0); Mean Platelet Volume 10.4 fL (7.4-10.4); Platelet Count 171 thou/uL (130-400); Red Blood Cell (RBC) Count 4.48 mill/uL (4.70-6.10); White Blood Cell (WBC) Count 9.5 thou/uL (4.8-10.8)
[2019-07-05 08:24] LABS: Anion Gap 11 mmol/L (10-20); BUN (Urea Nitrogen) 24 mg/dL (8.9-20.6); Calc. Creatinine Clearance 89 mL/min (70-130); Calcium 8.2 mg/dL (7.8-10.44); Carbon Dioxide 22 mmol/L (22-29); Chloride 110 mmol/L (98-107); Estimated GFR-MDRD 51; Glucose 210 mg/dL (70-105); Potassium 4.3 mmol/L (3.5-5.1); Sodium 139 mmol/L (136-145)
[2019-07-05 08:32] LABS: Hemoglobin A1c 8.4 % (4.0-6.0)
[2019-07-05] MEDS ORDERED: Polyethylene Glycol 3350 17 GM Packet PO SCH (09:00)
[2019-07-05] MEDS: Aspirin 81 mg Enteric Coated Tablet PO SCH (09:40)
[2019-07-05] MEDS: Polyethylene Glycol 3350 17 GM Packet PO SCH (09:40)
[2019-07-05] MEDS: Carvedilol 25 MG TAB PO SCH ×3 (09:40→20:54)
[2019-07-05] MEDS: HumaLOG 300 UNITS/3 ML VIAL SC PRN ×4 (09:41→20:56)
[2019-07-05] MEDS: Acetaminophen/Codeine 30-300mg Tablet PO PRN (10:33)
[2019-07-05] MEDS: Sodium Bicarbonate Tab 325 MG TAB PO SCH ×2 (10:34→20:53)
--- NOTE | 2019-07-05 12:31 | PDOC.HOSPP ---
- Subjective Encounter Date: 07/05/19 Encounter Time: 12:29 Subjective: Doing ok. Still has some discomfort in the RLQ. Says it is not really any better today. - Objective Vital Signs & Weight: Vital Signs (12 hours) Temp Pulse Pulse Pulse Resp BP BP 07/05/19 12:00 97.8 F 84 17 07/05/19 09:55 85 89 121/74 121/74 07/05/19 09:37 97.9 F 85 19 07/05/19 04:00 73 16 BP BP Pulse Ox 07/05/19 12:00 140/67 98 07/05/19 09:55 07/05/19 09:37 121/74 99 07/05/19 04:00 117/66 100 Weight Weight 271 lb 14.4 oz I&O: 07/04/19 07/05/19 07/06/19 06:59 06:59 06:59 Intake Total 2150 4065 Output Total 1500 1675 Balance 650 2390 Result Diagrams: 07/05/19 07:50 07/06/19 03:47 Additional Labs: Accuchecks 07/05/19 07/05/19 07/04/19 11:27 05:05 20:59 POC Glucose 290 H 246 H 265 H 07/04/19 16:24 POC Glucose 269 H Hospitalist ROS - Medication Medications: Active Medications Generic Name Dose Route Start Last Admin Trade Name Freq PRN Reason Stop Dose Admin Acetaminophen/Codeine Phosphate 2 tab 07/03/19 09:14 07/05/19 10:33 Tylenol #3 PO 2 tab Q4H PRN Administration Moderate Pain (4-6) Aspirin 81 mg 07/04/19 09:00 07/05/19 09:40 Ecotrin PO 81 mg DAILY CHELSIE Administration Atorvastatin Calcium 80 mg 07/03/19 21:00 07/04/19 21:19 Lipitor PO 80 mg HS CHELSIE Administration Carvedilol 25 mg 07/03/19 15:00 07/05/19 09:40 Coreg PO 25 mg TID CHELSIE Administration Sodium Chloride 1,000 mls @ 125 mls/hr 07/04/19 15:55 07/05/19 09:49 Normal Saline 0.9% IV 1,000 mls .Q8H CHELSIE Administration Insulin Glargine 20 units/ 0.2 mls @ 0 mls/hr 07/04/19 21:00 07/04/19 21:20 Miscellaneous Medication SC 0.2 mls HS CHELSIE Administration Insulin Human Lispro 0 units 07/03/19 21:32 07/04/19 21:21 Humalog SC 3 unit .BEDTIME SLIDING SC PRN Administration BEDTIME SLIDING SCALE Protocol Insulin Human Lispro 0 units 07/04/19 15:57 07/05/19 09:41 Humalog SC 6 unit .AGGRESSIVE SLIDING PRN Administration Aggressive Correctional Scale Pantoprazole Sodium 40 mg 07/04/19 09:00 07/05/19 09:40 Protonix PO 40 mg DAILY CHELSIE Administration Polyethylene Glycol 17 gm 07/05/19 09:00 07/05/19 09:40 Miralax PO 17 gm DAILY CHELSIE Administration Quetiapine Fumarate 150 mg 07/03/19 21:00 07/04/19 21:19 Seroquel PO 150 mg HS CHELSIE Administration Sodium Bicarbonate 650 mg 07/05/19 09:00 07/05/19 10:34 Bicarbonate, Sodium PO 650 mg BID CHELSIE Administration Hosp A/P (1) Chest pain Code(s): R07.9 - CHEST PAIN, UNSPECIFIED Status: Acute (2) LUCI (acute kidney injury) Code(s): N17.9 - ACUTE KIDNEY FAILURE, UNSPECIFIED Status: Acute (3) Postoperative hematoma involving circulatory system following cardiac catheterization Code(s): I97.630 - POSTPROC HEMATOMA OF A CIRC SYS ORG FOLLOWING A CARDIAC CATH Status: Acute (4) Hyponatremia Code(s): E87.1 - HYPO-OSMOLALITY AND HYPONATREMIA Status: Acute (5) Constipation Code(s): K59.00 - CONSTIPATION, UNSPECIFIED Status: Acute (6) Diabetes mellitus Code(s): E11.9 - TYPE 2 DIABETES MELLITUS WITHOUT COMPLICATIONS Status: Acute (7) Leukocytosis Code(s): D72.829 - ELEVATED WHITE BLOOD CELL COUNT, UNSPECIFIED Status: Acute - Plan Hgb stable. BP stable Creatinine improving. DC IV pain meds. Ambulate. May be able to DC soon.
--- NOTE | 2019-07-05 12:46 | PRG ---
DATE OF SERVICE: 07/05/2019 SERVICE: Nephrology. SUBJECTIVE: A 49-year-old male seen in followup for acute on chronic renal failure. The patient denies any new complaints. Appetite is good. Denied nausea or vomiting. Abdominal pain has improved. No fever, cough, or shortness of breath. OBJECTIVE: VITAL SIGNS: Temperature 97.9, pulse 85, respiratory rate 19, SpO2 of 99% on room air, and blood pressure is 121/74. GENERAL: Obese male, in no obvious distress. NECK: Supple with no JVD. CARDIOVASCULAR: Regular rhythm and rate with normal heart sounds 1 and 2. RESPIRATORY: Fair air entry bilaterally with no crackle or rhonchi or use of accessory muscles. GI: Obese, soft, nontender, and nondistended with normal bowel sounds. EXTREMITIES: Grossly normal looking, atraumatic, with no edema or erythema. INFORMATION BROKER: Conscious, alert, and oriented x3 with appropriate mental status. Cranial nerves 2 through 12 are grossly intact. DIAGNOSTIC DATA: CBC showed WBC count of 9.5, hemoglobin of 11.7, MCV of 83.4, and platelets of 171. BMP showed sodium 139, potassium 4.3, chloride 110, CO2 of 22, BUN 24, creatinine 1.74, glucose 210, and calcium 8.2. ASSESSMENT: 1. Acute kidney injury: This is most likely due to hemodynamic factors related to ABIGAIL karri use and volume depletion. Creatinine is trending down with IV fluids. Contrast induced nephropathy is unlikely with improvement in IV fluid. 2. Chronic kidney disease stage 3 due to hypertension and diabetes mellitus. 3. Hypertension: Control is acceptable. 4. Type 2 diabetes mellitus, on insulin. Defer to primary care attending for management. PLAN: 1. Continue IV fluid at current rate. 2. Avoid nephrotoxic agents including Lasix and ABIGAIL karri. 3. Optimal glycemic control advised. 4. Continue current antihypertensives. 5. Repeat renal function panel in the morning. Further treatment to follow depending on hospital course. We will also start alkali therapy. Job ID: [id number]
--- NOTE | 2019-07-05 16:35 | PDOC.CPN ---
- Subjective Date: 07/05/19 Time: 16:33 Interval history: Doing well. No angina. Having normal BM's. Walking without issues. - Review of Systems General: denies: fever/chills, weight/appetite/sleep changes, night sweats, fatigue Respiratory: denies: cough, congestion, shortness of breath, exercise intolerance Cardiovascular: denies: chest pain, palpitation, edema, paroxysmal nocturnal dyspnea, orthopnea Gastrointestinal: denies: nausea, vomiting, diarrhea, constipation, abd pain, GI bleeding Musculoskeletal: denies: pain, tenderness, stiffness, swelling, arthritis/ arthralgias Neurological: denies: numbness, syncope, seizure, weakness - Objective Allergies/Adverse Reactions: Allergies Allergy/AdvReac Type Severity Reaction Status Date / Time iodine Allergy Verified 07/02/19 08:23 Visit Medications: Current Medications Acetaminophen/Codeine Phosphate (Tylenol #3) 1 tab PO Q4H PRN PRN Reason: Mild Pain (1-3) Acetaminophen/Codeine Phosphate (Tylenol #3) 2 tab PO Q4H PRN PRN Reason: Moderate Pain (4-6) Last Admin: 07/05/19 10:33 Dose: 2 tab Aspirin (Ecotrin) 81 mg PO DAILY [facility] Last Admin: 07/05/19 09:40 Dose: 81 mg Atorvastatin Calcium (Lipitor) 80 mg PO [facility] Last Admin: 07/04/19 21:19 Dose: 80 mg Carvedilol (Coreg) 25 mg PO TID [facility] Last Admin: 07/05/19 15:02 Dose: 25 mg Dextrose/Water (Dextrose 50%) 25 gm SLOW IVP PRN PRN PRN Reason: Hypoglycemia Glucagon (Glucagon) 1 mg IM PRN PRN PRN Reason: Hypoglycemia Hydralazine HCl (Apresoline) 10 mg SLOW IVP Q6H PRN PRN Reason: SBP>180 OR DBP>100 Dextrose/Water (D5w) 1,000 mls @ 0 mls/hr IV .Q0M PRN PRN Reason: Hypoglycemia Sodium Chloride (Normal Saline 0.9%) 1,000 mls @ 125 mls/hr IV .Q8H [facility] Last Admin: 07/05/19 09:49 Dose: 1,000 mls Insulin Glargine 20 units/ (Miscellaneous Medication) 0.2 mls @ 0 mls/hr SC [facility] Last Admin: 07/04/19 21:20 Dose: 0.2 mls Insulin Human Lispro (Humalog) 0 units SC .BEDTIME SLIDING SC PRN; Protocol PRN Reason: BEDTIME SLIDING SCALE Last Admin: 07/04/19 21:21 Dose: 3 unit Insulin Human Lispro (Humalog) 0 units SC .AGGRESSIVE SLIDING PRN PRN Reason: Aggressive Correctional Scale Last Admin: 07/05/19 13:22 Dose: 9 unit Nitroglycerin (Nitrostat) 0.4 mg SL Q5MIN PRN PRN Reason: Chest Pain Pantoprazole Sodium (Protonix) 40 mg PO DAILY [facility] Last Admin: 07/05/19 09:40 Dose: 40 mg Polyethylene Glycol (Miralax) 17 gm PO DAILY [facility] Last Admin: 07/05/19 09:40 Dose: 17 gm Quetiapine Fumarate (Seroquel) 150 mg PO [facility] Last Admin: 07/04/19 21:19 Dose: 150 mg Sodium Bicarbonate (Bicarbonate, Sodium) 650 mg PO BID [facility] Last Admin: 07/05/19 10:34 Dose: 650 mg Vital Signs & Weight: Vital Signs Temp Pulse Pulse Pulse Resp BP BP 07/05/19 15:53 98.7 F 85 17 07/05/19 12:00 97.8 F 84 17 07/05/19 09:55 85 89 121/74 121/74 07/05/19 09:37 97.9 F 85 19 BP BP Pulse Ox 07/05/19 15:53 138/73 99 07/05/19 12:00 140/67 98 07/05/19 09:55 07/05/19 09:37 121/74 99 Weight 271 lb 14.4 oz - Physical Exam General: alert & oriented x3, appears well HEENT: mucus membranes moist Neck: supple neck, midline trachea Cardiac: regular rate and rhythm, no murmur Lungs: clear to auscultation Neuro: grossly intact Abdomen: active bowel sounds Extremities: no edema Skin: clear Musculoskeletal: no pain - Labs Result Diagrams: 07/05/19 07:50 07/05/19 07:50 Troponin/CKMB CK-MB (CK-2) 6.3 ng/mL (0-6.6) 07/01/19 22:32 Troponin I 0.053 ng/mL (< 0.028) H 07/02/19 05:30 - Telemetry Sinus rhythms and dysrhythmias: sinus rhythm - Assessment/Plan Assessment/Plan: 1. Multivessel CAD. 2. S/P CABG 3. LUCI on CKD 4. HTN 5. HLP 6. Type 2 DM PLAN: - CV stable. - Creatinine improving with IV fluids. - On /Statin/BB, no ACEI given renal function.
[2019-07-05] MEDS: Atorvastatin Calcium 40 MG TAB PO SCH (20:53)
[2019-07-05] MEDS: Insulin Glargine 20 UNITS in Pre-Filled Syringe SC SCH (20:55)
[2019-07-06] MEDS: Sodium Chloride 0.9% 1,000 ML IV SCH (04:27)
[2019-07-06 04:58] LABS: Anion Gap 11 mmol/L (10-20); BUN (Urea Nitrogen) 20 mg/dL (8.9-20.6); Calc. Creatinine Clearance 89 mL/min (70-130); Calcium 7.7 mg/dL (7.8-10.44); Carbon Dioxide 22 mmol/L (22-29); Chloride 109 mmol/L (98-107); Estimated GFR-MDRD 50; Glucose 248 mg/dL (70-105); Sodium 138 mmol/L (136-145)
[2019-07-06 04:59] LABS: Complement-C4 38.5 mg/dL (15-53)
[2019-07-06] MEDS: Polyethylene Glycol 3350 17 GM Packet PO SCH (08:38)
[2019-07-06] MEDS: Carvedilol 25 MG TAB PO SCH ×2 (08:38→16:12)
[2019-07-06] MEDS: Aspirin 81 mg Enteric Coated Tablet PO SCH (08:38)
[2019-07-06] MEDS: Sodium Bicarbonate Tab 325 MG TAB PO SCH (08:38)
[2019-07-06] MEDS: HumaLOG 300 UNITS/3 ML VIAL SC PRN ×3 (08:43→18:02)
[2019-07-06] MEDS ORDERED: Insulin Glargine 10 UNITS in Pre-Filled Syringe 1 EACH SC SCH (09:00)
--- NOTE | 2019-07-06 09:54 | PRG ---
DATE OF SERVICE: 07/06/2019 SERVICE: Nephrology. SUBJECTIVE: A 49-year-old male with known history of diabetes, hypertension, being seen in followup for LUCI on CKD 3. The patient is on lisinopril, also had cardiac catheterization. Creatinine improved later with IV fluid therapy. No nausea, vomiting, or change in bowel habit or leg swelling. OBJECTIVE: VITAL SIGNS: Temperature 97.8, pulse 80, respiratory rate 10, SpO2 100% on room air, blood pressure 135/77. GENERAL: Obese male, in no distress. Afebrile, anicteric, acyanotic. HEENT: Normocephalic and atraumatic. Oral mucosa is moist. Neck. Supple with no JVD. CARDIOVASCULAR: Regular rhythm and rate with normal heart sounds 1 and 2.RESPIRATORY: Good air entry bilaterally with no obvious crackle or rhonchi or use of accessory muscles. GI: Obese, soft, nontender, nondistended with normal bowel sounds. EXTREMITIES: Grossly normal looking, atraumatic with no obvious edema or erythema. 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 Cranial nerves 2 through 12 are grossly intact. The patient moves all extremities. DIAGNOSTIC DATA: BMP showed sodium 138, potassium 4.0, chloride 109, CO2 of 22, BUN 20, creatinine 1.77, glucose 248, calcium 7.7. ASSESSMENT: 1. Acute kidney injury: Due to volume depletion in a patient on RAAS karri with possible contribution from contrast-induced nephropathy. Creatinine improved from a peak of 2.02 to 1.77. This would not be the trend that would be seen in contrast induced nephropathy, making a case for hemodynamic mediated injury related to volume contraction. 2. Chronic kidney disease, stage 3, due to hypertension and diabetes. 3. Hypertension: Control is acceptable. 4. Diabetes mellitus: Glycemic control remains suboptimal. 5. Chest pain. 6. Coronary artery disease with nonobstructive disease. PLAN: 1. Esko oral intake advised. 2. Avoid RAAS karri at least for now. The patient also advised to avoid NSAIDs. 3. Continue alkali therapy with sodium bicarbonate 650 mg p.o. b.i.d. 4. The patient can be discharged from Nephrology point of view to follow up with regular claim specialist, who is with [facility]. We will sign off at this time. Job ID: [id number]
[2019-07-06 16:11] VITALS: TEMP 98.7
[2019-07-06 17:08] VITALS: BP 164/62
--- NOTE | 2019-07-07 14:42 | DIS ---
DATE OF ADMISSION: 07/01/2019 DATE OF DISCHARGE: 07/06/2019 DISCHARGE DIAGNOSES: 1. Hypertensive urgency. 2. Chest pain. 3. Ayj-BO-mzvzptnuw myocardial infarction type 2 secondary to hypertensive urgency. 4. Acute kidney injury. 5. Mild multi-vessel nonocclusive coronary artery disease. 6. Right groin hematoma. 7. A 1.3 cm hypoechoic focus in the interpolar right kidney. 8. Chronic kidney disease stage 3. 9. Diabetes mellitus type 2. 10. History of cerebrovascular accident with residual right-sided deficits. 11. History of bipolar depression. 12. Moderate concentric left ventricular hypertrophy. 13. Diastolic dysfunction. 14. Hyperlipidemia. HISTORY OF PRESENT ILLNESS: The patient is a 49-year-old male with a history of bipolar depression and history of CVA, who presented to [facility] for a routine followup. There, he was noted to have profound hypertension and presented to the emergency department on the recommendations of [facility]. The patient had reported headaches over the previous several weeks and also reported some chest pain at the time of his presentation in the emergency department. He had slight elevation in his troponin and he was subsequently admitted to the hospital. HOSPITAL COURSE: The patient's blood pressure had improved following initial treatments in the emergency department and remained improved throughout his hospitalization. He had nitrates and aspirin along with telemetry and serial troponins which actually declined. He had an echocardiogram performed, which revealed an ejection fraction of 55% to 60% with concentric left ventricular hypertrophy and evidence of diastolic dysfunction. He was seen in consultation by Cardiology, who felt the patient was potentially having an acute coronary syndrome. He underwent heart catheterization, which revealed multi-vessel nonocclusive coronary artery disease; therefore, it was felt the patient likely had NSTEMI type 2 secondary to the hypertensive emergency. Subsequently, the patient developed some right lower quadrant discomfort and a CT scan of the abdomen revealed that the patient had developed a post-catheterization right groin hematoma with extension along the right pericolic space which accounted for his symptoms. The patient also developed post-catheterization acute kidney injury and there was concern that this was secondary to the catheterization itself and Nephrology was consulted. It was felt that this may have been also related to his being on TI inhibitors. With cessation of the TI inhibitor and hydration, his renal function did improve and stabilized with a GFR around 50. His hemoglobins remained stable with no evidence of significant persistent bleeding at the hematoma. With this, the patient was felt to be stable for discharge in outpatient followup. PHYSICAL EXAMINATION: VITAL SIGNS: On the day of discharge, temperature was 97.8, pulse 91, respirations 17, O2 saturation 99% on room air, BP was 157/79. GENERAL: He was awake and alert. HEART: Regular rate and rhythm. LUNGS: Clear bilaterally. ABDOMEN: Benign. EXTREMITIES: With no cyanosis, clubbing, or edema. DISPOSITION: The patient is discharged to home. DIET: He will be on a heart healthy diabetic diet. ACTIVITY: Level is as tolerated. DISCHARGE MEDICATIONS: He will be on: 1. Atorvastatin 80 mg p.o. at bedtime. 2. Sodium bicarbonate 650 mg b.i.d. He will continue with: 1. Seroquel 150 mg at bedtime. 2. Remeron 15 mg at bedtime p.r.n. 3. Reglan 10 mg q.i.d. p.r.n. 4. Keppra 1000 mg b.i.d. 5. Lantus 30 units subcu daily. 6. Gary one q.4 hours p.r.n. 7. Gabapentin 600 mg t.i.d. 8. Chlorthalidone 25 mg daily. 9. Carvedilol 25 mg b.i.d. 10. Aspirin 81 mg daily. 11. Amlodipine 10 mg daily. 12. Albuterol p.r.n. 13. Clonidine 0.2 mg b.i.d. p.r.n. Note, the patient will have his TI inhibitor discontinued and he is to follow up with his PCP for further blood pressure medication management. The patient will follow up with Dr. Arlene Frey in 3 days. He is to follow up with his PCP to have blood work and follow up with director employee communications, Dr. Jeffrey in 1-2 weeks. He will also see Dr. Dylon Diaz in 2 to [address] Liliya Stack in 14 days. He can return to the hospital at anytime should he have the need to do so. Time spent in discharge activity was 33 min. Job ID: [id number] MTDD
--- NOTE | 2019-07-08 20:28 | PQF ---
MANJIT TAYLOR OBI, CHIZOBA C [id number] [facility]-[id number] CLINICAL DOCUMENTATION CLARIFICATION FORM: POST DISCHARGE Addendum to original discharge summary date: ____ Late entry note date: __ Please Redirect to Dr Chung. DATE: 07/08/18 ATTN: Beckie Jeffrey Please exercise your independent, professional judgment in responding to the clarification form. Clinical indicators are provided on the bottom of this form for your review Can you please further clarify the etiology of chest pain? Please check appropriate box(s): [ ] Hypertensive urgency [ ] LUCI [ ] CAD [ ] chest pain of unknown etiology [ ] GERD [ ] Other diagnosis please specify [ ] Unable to determine In addition, please specify: Present on Admission (POA): [ ] Yes [ ] No [ ] Unable to determine For continuity of documentation, please document condition throughout progress notes and discharge summary. Thank You. CLINICAL INDICATORS - SIGNS / SYMPTOMS /LABS H and P pg.1- chief complaint: chest pain, headache H and P pg.3- hypertensive urgency H and P pg.3- i suspect the patient's symptoms are likely secondary to chronic hypertension and perhaps strain Hospitalist PN 07/02 pg.1- the patient continues to have chest pain, states it is 6/10 on the left side of chest. Hospitalist PN 07/03 pg.4- presenting with chest pain, work up negative so far Hospitalist PN 07/03 pg.5- Chest pain possibly GERD? Hospitalist PN 07/03 pg.5Elevated troponin possibly from hypertension Consult Dr. Jeffery pg.4- LUCI etiology unclear RISK FACTORS DM pg.1 Hypertension- H and P pg.1 CKD3- H and P pg.3 CAD- Cardiology PN pg.3 HLP- Cardiology P pg.4 TREATMENTS: LHC- Vp Of Product report Physician 1/7 TTE- Echocardiogram 07/[address] Diaz 07/02 Nephrology consult 07/04 Dr. Jeffrey IV Fluids- MAR Aspirin 81mg PO- MAR Carvedilol 25mg PO- MAR (This form is maintained as a part of the permanent medical record) 2014 [employer]. All Rights Reserved [email or web address] [not provided] MTDD
--- NOTE | 2019-07-12 10:48 | EKG ---
Test Reason : Blood Pressure : / mmHG Vent. Rate : 089 BPM Atrial Rate : 089 BPM P-R Int : 148 ms QRS Dur : 090 ms QT Int : 402 ms P-R-T Axes : 054 -02 023 degrees QTc Int : 489 ms Normal sinus rhythm Left atrial enlargement Prolonged QT Abnormal ECG Confirmed by MAHESH ARIAS, THIERNO Fabian ([id number]), digital editor KAMALA HARTMANN ([id number]) on 07/12/2019 10:47:57 AM Referred By: Confirmed By:THIERNO ARAGON MD
== END 2019-07-06 18:33 | disposition home or self-care (01) | DRG 281 ==
LOC: ERS 21:34 → OBSVTOIN 23:17 → ERHOLD 23:17 → 2SW 07-02 06:36 → 2NO 07-03 22:22
PROVIDERS: ADMIT Hospitalist; ATTEND Hospitalist
PROC: 4A023N7 Measurement of Cardiac Sampling and Pressure, Left Heart, Percutaneous Approach (ICD-10-PCS; principal; 2019-07-03)
PROC: B2111ZZ Fluoroscopy of Multiple Coronary Arteries using Low Osmolar Contrast (ICD-10-PCS; 2019-07-03)
PROC: B2151ZZ Fluoroscopy of Left Heart using Low Osmolar Contrast (ICD-10-PCS; 2019-07-03)
DX: I16.0 Hypertensive urgency (principal); I21.A1 Myocardial infarction type 2; N17.9 Acute kidney failure, unspecified; I69.351 Hemiplegia and hemiparesis following cerebral infarction affecting right dominant side; I16.1 Hypertensive emergency; E87.1 Hypo-osmolality and hyponatremia; L76.32 Postprocedural hematoma of skin and subcutaneous tissue following other procedure; R07.9 Chest pain, unspecified; I12.9 Hypertensive chronic kidney disease with stage 1 through stage 4 chronic kidney disease, or unspecified chronic kidney disease; J45.909 Unspecified asthma, uncomplicated; N18.3 Chronic kidney disease, stage 3 (moderate); F31.9 Bipolar disorder, unspecified; E11.22 Type 2 diabetes mellitus with diabetic chronic kidney disease; E78.00 Pure hypercholesterolemia, unspecified; F17.210 Nicotine dependence, cigarettes, uncomplicated; K21.9 Gastro-esophageal reflux disease without esophagitis; E11.65 Type 2 diabetes mellitus with hyperglycemia; I25.10 Atherosclerotic heart disease of native coronary artery without angina pectoris; E78.5 Hyperlipidemia, unspecified; I08.1 Rheumatic disorders of both mitral and tricuspid valves; Y83.8 Other surgical procedures as the cause of abnormal reaction of the patient, or of later complication, without mention of misadventure at the time of the procedure; K59.00 Constipation, unspecified; D72.829 Elevated white blood cell count, unspecified; Z79.4 Long term (current) use of insulin; Z90.49 Acquired absence of other specified parts of digestive tract; Z79.899 Other long term (current) drug therapy; Z79.51 Long term (current) use of inhaled steroids; Z91.041 Radiographic dye allergy status; Z95.1 Presence of aortocoronary bypass graft
CPT/HCPCS: 36415; 36416; 74176; 76770; 80048; 80053; 80061; 81001; 81003; 81015; 82550; 82553; 82570; 83036; 84300; 84484; 84540; 85027; 85347; 85610; 86160; 93005; 93306; 93458; 94760; 99152; C1769; J0360; J1644; J1815; J2250; J2270; J2720; J3010; J7512; Q0163; Q9967